=== PATIENT | male | born 1990 | race Caucasian/White ===

== ENCOUNTER 2020-05-30 14:24 | Emergency (ER) | payer MEDICAID, OTHER ==
[~2020-05-30] VITALS: Ht 175.3 cm; Wt 65.9 kg
[~2020-05-30 14:24] MED LIST: IBUP-1986 PO
[2020-05-30] MEDS ORDERED: TETanus/Pertussis (Acell)/Diphther VAC/PF (Tdap-Adult) 0.5ml syringe IMVAC ONE (16:45)
[2020-05-30 16:59] VITALS: BP 119/69
== END 2020-05-30 17:00 | disposition home or self-care (01) ==
LOC: ER 14:24
DX: S61.112A Laceration without foreign body of left thumb with damage to nail, initial encounter (principal); Z79.899 Other long term (current) drug therapy; W26.8XXA Contact with other sharp object(s), not elsewhere classified, initial encounter; Y93.G3 Activity, cooking and baking; Y92.89 Other specified places as the place of occurrence of the external cause; Y99.8 Other external cause status
CPT/HCPCS: 12001; 90471; 90715; 99283

== ENCOUNTER 2021-01-04 17:17 | Emergency (ER) | payer MEDICAID, OTHER ==
[~2021-01-04] VITALS: Ht 172.7 cm; Wt 59.2 kg
[2021-01-04] MEDS ORDERED: CEPH250T PO (17:30)
[2021-01-04] MEDS ORDERED: SULF1TAB49 PO (17:30)
[2021-01-04] MEDS ORDERED: MUPI22OI30 TOP (17:30)
[2021-01-04 17:41] VITALS: BP 121/82
== END 2021-01-04 18:23 | disposition home or self-care (01) ==
LOC: ER 17:18
DX: L08.89 Other specified local infections of the skin and subcutaneous tissue (principal)
CPT/HCPCS: 99283

== ENCOUNTER 2021-02-22 08:16 | Emergency (ER) | payer OTHER ==
[~2021-02-22] VITALS: Ht 167.6 cm; Wt 70.0 kg
[2021-02-22 09:01] VITALS: BP 142/89
[2021-02-22 09:57] LABS: COLOR,URINE YELLOW (Yellow); UA COLLECTION TYPE CLN CATCH MIDSTREAM
[2021-02-22 09:58] LABS: CLARITY,URINE SLIGHTLY CLOUDY (Clear); GLUCOSE, URINE NEGATIVE (Neg); KETONES,URINE NEGATIVE (Neg); PROTEIN,URINE TRACE mg/dl (Neg)
[2021-02-22 09:59] LABS: LEUKOCYTE ESTERASE ,URINE NEGATIVE (Neg); NITRITES, URINE NEGATIVE (Neg); OCCULT BLOOD,URINE LARGE (Neg); UROBILINOGEN,URINE 0.2 E.U/dL (0.2-1.0)
[2021-02-22 10:06] LABS: CAL OXALATE CRYSTALS 4+ /HPF (NEGATIVE)
[2021-02-22 10:07] LABS: BACTERIA,URINE NONE SEEN /HPF (Neg); MUCUS STRANDS FEW /LPF (Neg); SQUAMOUS EPITHELIAL CELL,UR NONE SEEN /LPF (FEW)
[2021-02-22 10:08] LABS: WBC,URINE 0-4 /HPF (0-4)
[2021-02-22] MEDS ORDERED: NAPR-56 PO (11:22)
== END 2021-02-22 11:58 | disposition home or self-care (01) ==
LOC: ER 08:16
DX: R10.32 Left lower quadrant pain (principal)
CPT/HCPCS: 76857; 81001; 99284

== ENCOUNTER 2023-06-07 00:26 | Emergency (ER) | payer BC ==
[~2023-06-07] VITALS: Ht 172.7 cm; Wt 67.3 kg
[2023-06-07 00:33] VITALS: BP 133/85; PULSE 110; RESP 18; TEMP 98.2; O2SAT 99
[2023-06-07] MEDS ORDERED: LIDOCAINE 1%/EPI 1:100,000 inj. 10 ML multi-dose vial IJ ONE (00:50)
[2023-06-07] MEDS ORDERED: sulfamethoxazole/trimethoprim DS (800/160mg) tablet PO ONE (00:55)
[2023-06-07] MEDS ORDERED: SULF1TAB45 PO (01:13)
[2023-06-07] MEDS ORDERED: CEPH-585 PO (01:13)
[2023-06-07] MEDS ORDERED: ibuprofen tablet 400 MG TABLET PO ONE (01:15)
== END 2023-06-07 01:33 | disposition home or self-care (01) ==
LOC: ER 00:27
DX: L02.415 Cutaneous abscess of right lower limb (principal)
CPT/HCPCS: 10060; 99283; A6266

== ENCOUNTER 2023-06-11 20:21 | Emergency (ER) | payer BC ==
[~2023-06-11] VITALS: Ht 172.7 cm; Wt 71.3 kg
[~2023-06-11 20:21] MED LIST changes: +CEPH-585 PO; +SULF1TAB45 PO
[2023-06-11 20:24] VITALS: BP 134/87; PULSE 86; RESP 17; TEMP 98.6; O2SAT 98
== END 2023-06-11 20:47 | disposition home or self-care (01) ==
LOC: ER 20:21
DX: L02.415 Cutaneous abscess of right lower limb (principal); Z48.00 Encounter for change or removal of nonsurgical wound dressing
CPT/HCPCS: 99281; A6258

== ENCOUNTER 2023-07-18 13:09 | Emergency (ER) | payer BC ==
[~2023-07-18] VITALS: Ht 172.7 cm; Wt 70.5 kg
[~2023-07-18 13:09] MED LIST changes: -SULF1TAB45 PO
[2023-07-18 13:12] VITALS: BP 127/77; PULSE 77; RESP 17; TEMP 98.3; O2SAT 97
== END 2023-07-18 14:36 | disposition home or self-care (01) ==
LOC: ER 13:09
DX: T16.2XXA Foreign body in left ear, initial encounter (principal); Z79.2 Long term (current) use of antibiotics; Z79.1 Long term (current) use of non-steroidal anti-inflammatories (NSAID); W44.G1XA Audio device entering into or through a natural orifice, initial encounter; Y93.89 Activity, other specified; Y92.89 Other specified places as the place of occurrence of the external cause; Y99.8 Other external cause status
CPT/HCPCS: 99284